=== PATIENT | female | born 1945 | race Caucasian/White ===

== ENCOUNTER 2018-03-21 09:39 | Emergency (ER) | payer MEDICARE, MEDICAID ==
--- NOTE | 2018-03-21 10:20 | EDM.PDOC ---
ED HPI GENERAL MEDICAL PROBLEM - General Chief Complaint: Upper Extremity Injury/Pain Stated Complaint: L)ARM HEMATOMA WITH TINGLING Time Seen by Provider: 03/21/18 09:50 Source of Information: Reports: Patient History Limitations: Reports: No Limitations - History of Present Illness INITIAL COMMENTS - FREE TEXT/NARRATIVE: patient reports she had a blood draw approx 2 days [employer] and now reports a large bruise at the site of the draw. she denies other concerns. Onset: Gradual Location: Reports: Upper Extremity, Left Quality: Reports: Other (bruising, tingling) Severity: Mild Context: Reports: Other (blood draw) - Related Data Allergies Allergy/AdvReac Type Severity Reaction Status Date / Time No Known Allergies Allergy Verified 03/21/18 09:52 Home Meds: Home Meds Aspirin [Halfprin] 81 mg PO DAILY 03/21/18 [History] Lisinopril [Prinivil] 10 mg PO DAILY 03/21/18 [History] Metoprolol Succinate 25 mg PO DAILY 03/21/18 [History] atorvaSTATin [Lipitor] 10 mg PO DAILY 03/21/18 [History] Past Medical History Cardiovascular History: Reports: High Cholesterol, Hypertension Social & Family History - Family History Family Medical History: Noncontributory - Tobacco Use Smoking Status *Q: Current Every Day Smoker Years of Tobacco use: 30 Packs/Tins Daily: 1 - Caffeine Use Caffeine Use: Reports: Coffee - Recreational Drug Use Recreational Drug Use: No Review of Systems - Review of Systems Review Of Systems: See Below Constitutional: Denies: Chills, Fever Respiratory: Denies: Shortness of Breath, Wheezing Cardiovascular: Denies: Chest Pain GI/Abdominal: Denies: Abdominal Pain, Nausea, Vomiting Musculoskeletal: Denies: Neck Pain Skin: Reports: Bruising. Denies: Rash, Lesions Neurological: Denies: Confusion, Dizziness, Syncope, Weakness ED EXAM, GENERAL - Physical Exam Exam: See Below Exam Limited By: No Limitations General Appearance: Alert, WD/WN, No Apparent Distress Head: Atraumatic, Normocephalic Neck: Normal Inspection, Supple, Non-Tender Respiratory/Chest: No Respiratory Distress Cardiovascular: Normal Peripheral Pulses, Regular Rate, Rhythm, No Edema, No Gallop, No JVD, No Murmur, No Rub Peripheral Pulses: 2+: Radial (L), Radial (R) Extremities: Normal Capillary Refill, Other (approx 4 cm diameter bruise to the LEFT AC. extremities otherwise unremarkable.) Neurological: Alert, Oriented, CN II-XII Intact, Normal Cognition, Normal Gait, Normal Reflexes, No Motor/Sensory Deficits Psychiatric: Normal Affect, Normal Mood Skin Exam: Warm, Dry, Intact, Normal Color, No Rash, Other (approx 4 cm diameter bruise to LEFT AC. skin exam otherwise without acute findings.) Course - Vital Signs Last Recorded V/S: Last Vital Signs Temp 36.8 C 03/21/18 09:40 Pulse 54 L 03/21/18 09:40 Resp 20 03/21/18 09:40 BP 171/62 H 03/21/18 09:40 Pulse Ox 100 03/21/18 09:40 Departure - Departure Time of Disposition: 10:19 Disposition: Home, Self-Care 01 Condition: Good Clinical Impression: Bruising - Discharge Information *PRESCRIPTION DRUG MONITORING PROGRAM REVIEWED*: Not Applicable *COPY OF PRESCRIPTION DRUG MONITORING REPORT IN PATIENT ROSI: Not Applicable Referrals: Cosme Spann, VEE [Primary Care Provider] - Forms: ED Department Discharge Additional Instructions: REST HYDRATE ALTERNATE RICE AND HEAT ON THE BRUISE FOLLOW UP WITH YOUR PCP IN 3-5 DAYS FOR A REPEAT EXAM GO TO THE ER IF CHANGE OR WORSE - Problem List Review Problem List Initiated/Reviewed/Updated: Yes - Assessment/Plan Assessment:: Bruising Simple bruising as a result of blood draw. No s/s infection. Advised patient to rest, hydrate, alternate heat and ice to the area, follow up with PCP in 3-5 days, go to ER if change or worse. Patient reports understanding and agreement with plan. DC home stable in care of spouse.
== END 2018-03-21 10:27 | disposition home or self-care (01) ==
LOC: CC.ED 09:39
DX: S50.02XA Contusion of left elbow, initial encounter (principal); I10 Essential (primary) hypertension; F17.210 Nicotine dependence, cigarettes, uncomplicated; X58.XXXA Exposure to other specified factors, initial encounter
CPT/HCPCS: 99283